=== PATIENT | female | born 1965 | race Caucasian/White ===

== ENCOUNTER 2017-04-12 06:00 | Day surgery (SDC) | payer OTHER | END 2017-04-12 09:45 | disposition home or self-care (01) | LOC: AMB-ENDOS 06:00 | DX: K57.30 Diverticulosis of large intestine without perforation or abscess without bleeding (principal); K64.1 Second degree hemorrhoids; Z86.010 Personal history of colon polyps; Z12.11 Encounter for screening for malignant neoplasm of colon ==